=== PATIENT | male | born 1985 | race Caucasian/White ===

== ENCOUNTER 2020-10-21 16:04 | Emergency (ER) | payer OTHER, MEDICAID ==
[~2020-10-21] VITALS: Ht 170.2 cm; Wt 75.0 kg
[2020-10-21 16:17] VITALS: BP 139/88
[2020-10-21] MEDS ORDERED: CLINDAMYCIN 300 MG CAPSULE PO ONE (16:30)
[2020-10-21] MEDS ORDERED: OXYcodone/APAP 5/325MG TABLET PO ONE (16:30)
--- NOTE | 2020-10-21 16:35 | NUR ---
XRAY WITH PT
[2020-10-21] MEDS: PLEASE ENTER ALLERGIES MC SCH ×2 (16:36→16:43)
[2020-10-21] MEDS ORDERED: CLINDAMYCIN 300 MG CAPSULE ONE (16:38)
[2020-10-21] MEDS ORDERED: OXYcodone/APAP 5/325MG TABLET ONE (16:39)
--- NOTE | 2020-10-21 17:50 | NUR ---
WOUND CLEANSED AND DRESSED
--- NOTE | 2020-10-21 18:25 | NUR ---
DISCHARGE INSTRUCTIONS GIVEN TO DEPUTY
== END 2020-10-21 18:39 | disposition home or self-care (01) ==
LOC: EDBD 16:04 → ED 16:35
DX: L03.113 Cellulitis of right upper limb (principal); M79.641 Pain in right hand
CPT/HCPCS: 99283